=== PATIENT | female | born 1985 | race Two or more races ===

== ENCOUNTER 2016-12-15 20:42 | Emergency (ER) | payer MEDICAID ==
[~2016-12-15] VITALS: Ht 162.6 cm; Wt 69.5 kg
[2016-12-15] MEDS ORDERED: SODIUM CHLORIDE FLUSH 10ML SYR IVF ONE (21:30)
[2016-12-15] MEDS ORDERED: SODIUM CHLORIDE 0.9% 1,000ML IVBOLUS ONE (21:30)
[2016-12-15] MEDS ORDERED: ACETAMINOPHEN 500 MG TABLET ONE (21:49)
[2016-12-15 21:54] LABS: HEMATOCRIT 45.6 % (34.6-47.8); HEMOGLOBIN 15.1 g/dL (11.7-16.4); WHITE BLOOD COUNT 9.3 x10^3/uL (3.4-10)
[2016-12-15] MEDS ORDERED: ACETAMINOPHEN 325 MG TABLET PO ONE (22:00)
[2016-12-15 22:05] LABS: BLOOD UREA NITROGEN 5 mg/dL (7-18)
[2016-12-15 22:09] LABS: ASPARTATE AMINO TRANSFERASE 24 U/L (15-37)
[2016-12-15] MEDS ORDERED: OXYcodone IR 5MG TABLET ONE (22:11)
[2016-12-15] MEDS ORDERED: OXYcodone IR 5MG TABLET PO PRN (22:30)
[2016-12-15 23:06] VITALS: BP 128/81
== END 2016-12-15 23:08 | disposition home or self-care (01) ==
LOC: ED 22:30
DX: J18.8 Other pneumonia, unspecified organism (principal); R07.89 Other chest pain
CPT/HCPCS: 36415; 71020; 80053; 85025; 93005; 96360; 99285; J7030

== ENCOUNTER 2017-09-25 08:06 | Emergency (ER) | payer MEDICAID ==
[~2017-09-25] VITALS: Ht 162.6 cm; Wt 69.1 kg
[2017-09-25 08:14] VITALS: BP 142/90
[2017-09-25] MEDS ORDERED: SODIUM CHLORIDE FLUSH 10ML SYR IVF ONE (09:00)
[2017-09-25] MEDS ORDERED: DEXAMETHASONE 4 MG/ML, 1ML IVPush ONE (09:00)
[2017-09-25] MEDS ORDERED: DEXAMETHASONE 4 MG/ML, 5ML ONE (09:01)
[2017-09-25 09:08] LABS: BASOPHILS # (AUTO) 0.08 x10^3/uL (0-0.1); BASOPHILS % (AUTO) 1 % (0-1); EOSINOPHILS # (AUTO) 0.07 x10^3/uL (0-0.4); EOSINOPHILS % (AUTO) 1 % (1-7); LYMPHOCYTES # (AUTO) 1.85 x10^3/uL (1-3.4); LYMPHOCYTES % (AUTO) 18 % (22-44); MD NO; MEAN CORPUSCULAR HEMOGLOBIN 30.1 pg (27.0-34.8); MEAN CORPUSCULAR HGB CONC 33.4 g/dL (32.4-35.8); MEAN CORPUSCULAR VOLUME 90.2 fL (80-100); MEAN PLATELET VOLUME 7.8 fL (7.4-10.4); MONOCYTES # (AUTO) 0.66 x10^3/uL (0.2-0.8); MONOCYTES % (AUTO) 6 % (2-9); NEUTROPHILS # (AUTO) 7.93 x10^3/uL (1.8-6.8); NEUTROPHILS % (AUTO) 75 % (42-75); PLATELET COUNT 357 x10^3/uL (130-400); RED BLOOD COUNT 5.07 x10^6/uL (3.82-5.3); RED CELL DISTRIBUTION WIDTH 13.2 % (9.6-15.2)
[2017-09-25 09:47] LABS: ALBUMIN 3.7 g/dL (3.4-5.0); ANION GAP 7 mmol/L (5-15); CALCIUM 8.8 mg/dL (8.5-10.1); CHLORIDE 104 mmol/L (98-107); CREATININE 0.71 mg/dL (0.55-1.02)
[2017-09-25] MEDS ORDERED: OMNIPAQUE 350 MG/ML, 100ML BOTTLE ONE (10:27)
[2017-09-25] MEDS ORDERED: CEFTRIAXONE PMX 1GM/50ML 50 ML ONE (10:54)
[2017-09-25] MEDS ORDERED: HYDROcodone/APAP 7.5-325MG/15ML UDC ONE (10:55)
[2017-09-25] MEDS ORDERED: HYDROcodone/APAP 7.5-325MG/15ML UDC PO ONE (11:00)
[2017-09-25] MEDS ORDERED: CEFTRIAXONE PMX 1GM/50ML 50 ML IV ONE (11:00)
== END 2017-09-25 11:54 | disposition home or self-care (01) ==
LOC: ED 09:51
DX: J02.9 Acute pharyngitis, unspecified (principal)
CPT/HCPCS: 36415; 70491; 80048; 82040; 85025; 96374; 96375; 99285; J0696; J1100; Q9967